=== PATIENT | male | born 1995 | race African-American/Black ===

== ENCOUNTER 2020-01-06 17:24 | Emergency (ER) | payer BC, SELFPAY ==
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
[2020-01-06 19:33] VITALS: BP 126/73; TEMP 98.2; O2SAT 100
== END 2020-01-06 19:28 | disposition home or self-care (01) ==
LOC: ER 17:24
DX: M79.10 Myalgia, unspecified site (principal); R07.9 Chest pain, unspecified; V89.2XXA Person injured in unspecified motor-vehicle accident, traffic, initial encounter
CPT/HCPCS: 71045; 99282

== ENCOUNTER 2024-04-22 16:00 | Emergency (ER) | payer OTHER, SELFPAY ==
--- OUTSIDE RECORDS SUMMARY | 2024-04-22 16:03 | XMS REPORT | Continuity of Care Document ---
Author Name Unknown Address [address] [facility] [address] [place] [address] [facility] Address [address] [facility] [address] [place] [address] Care Team Providers Care Custom Protection Officer Name Role Phone PCP, PATIENT DOES NOT HAVE A Primary Care Physic gina Unavailable AMBAR BLEDSOE Attending Clinician Unavailable Ambar Bledsoe NP Attending Clinician Problems Condition Name Condition Details Condition Category Status Onset Date Resolution Date Last Treatment Date Treating Clinician Comments Source Strain of lumbar region, initial encounter Strain of lumbar region, initial encounter Disease Active 2023-07 00:00: 00 [facility] Chronic left-sided low back pain without sciatica Chronic left-sided low back pain without sciatica Disease Active 2023-07 00:00: 00 [facility] Allergies, Adverse Reactions, Alerts Allergy Name Allergy Type Status Severity Reaction(s) Onset Date Inactive Date Treating Clinician Comments Source NO KNOWN ALLERGIE S Drug Class Active [facility] Social History Social Habit Start Date Stop Date Quantity Comments Source Sexual orientation U [facility] Sex assigned at 1995 00:00:00 1995 00:00:00 [facility] Smoking Status Start Date Stop Date Source Tobacco smoking consumption unknown [facility] Medications Ordered Medication Name Filled Medication Name Start Date Stop Date Current Medication? Ordering Clinician Indication Dosage Frequency Signature (SIG) Comments Components Source ibuprofen (IBU) tablet 600 mg 2023-07 0- 22:30: 00 04-21 10:29 :00 Yes 600mg 600 mg, Oral, ONCE, 1 dose, On 04/20/24 at 1730, ANNETTE [facility] ibuprofen (IBU) tablet 600 mg 2023-07 0 22:15: 00 04-20 22:15 :00 No 600mg 600 mg, Oral, ONCE, 1 dose, On 04/20/24 at 1715, ANNETTE [facility] ibuprofen 600 mg tablet 2023-07 00:00: 00 Yes [id number] 600mg Take 1 tablet by mouth every 6 (six) hours as needed for Pain (scale 4-6). [facility] Vital Signs Vital Name Observation Time Observation Value Comments S zurdoce Systolic blood pressure 2024-04-20 21:56:00 121 mm[Hg] [facility] Diastolic blood pressure 2024-04-20 21:56:00 75 mm[Hg] [facility] Heart rate 2024-04-20 21:56:00 78 /min [facility] Body temperature 2024-04-20 21:56:00 36.56 Jocelyn [facility] Respiratory rate 2024-04-20 21:56:00 20 /min [facility] Body height 2024-04-20 21:56:00 170.2 cm [facility] Body weight 2024-04-20 21:56:00 68.04 kg [facility] BMI 2024-04-20 21:56:00 23.49 kg/m2 [facility] Oxygen saturation in Arterial blood by Pulse oximetry 2024-04-20 21:56:00 99 /min [facility] Encounters Start Date/Time End Date/Time Encounter Type Admission Type Attending Clinicians Care Facility Care Department Encounter ID Source 2024-04-20 16:55:00 2024-04-20 17:28:00 Emergency X AMBAR BLEDSOE [facility] ERT [id number] [facility] 2024-04-20 16:55:00 2024-04-20 17:28:00 Emergency Ambar Bledsoe [facility] [id number] [facility] Notes Date/Time Note Provider Source 2024-04-20 17:26:12 Patient discharged to nursing home. Patient given printed and verbal discharge instructions regarding diagnosis. Instructed to follow up with PCP. Patient verbalized understanding of instructions. Patient awake, alert, oriented, respirations even and unlabored, skin warm and dry, color appropriate for race. No adverse reaction to meds given in ER noted upon discharge. Discussed medications. Advised to seek medical attention for new/prolonged/worsening of symptoms, patient ambulated from unit with steady gait in no apparent distress, in custody of [employer]. Rahul Prajapati RN [facility] 2024-04-20 16:55:09 Pt presents to ED via [facility] for c/o back pain that flare up when he was arrested and taken to nursing home. EMS gave 500 mg tylenol PO, 20 g to RAC. PMHx: anxiety [facility]
--- NOTE | 2024-04-22 17:19 | EDPHYS ---
Physician Documentation [facility] Name: Jorge Barlow Jr Age: 28 yrs Sex: Male : 1995 Arrival Date: 04/22/2024 Time: 16:00 Bed [id number] Private MD: ED Physician Michael Wright HPI: 04/22 16:02 This 28 yrs old Black Male presents to ER via EMS with complaints of abdominal pain, sb4 diarrhea. 16:02 The patient presents with abdominal pain that is diffuse. Onset: The symptoms/episode sb4 began/occurred today. The symptoms do not radiate. Associated signs and symptoms: Pertinent positives: nausea, vomiting, and diarrhea. The patient has not experienced similar symptoms in the past. The patient has not recently seen a physician. Historical: - Allergies: 16:13 No Known Allergies; ss - Home Meds: 16:13 None [Active]; ss - PMHx: 16:13 None; ss - PSHx: 16:13 None; ss - Immunization history:: Adult Immunizations up to date. - Infectious Disease History:: Denies. - Social history:: Smoking status: Patient denies any tobacco usage or history of. ROS: 16:02 Constitutional: Negative for fever, chills, and weight loss, sb4 16:02 Abdomen/GI: Positive for abdominal pain, nausea, vomiting, and diarrhea, 16:02 All other systems are negative, Exam: 16:02 Constitutional: This is a well developed, well nourished patient who is awake, alert, sb4 and in no acute distress. Head/Face: Normocephalic, atraumatic. Eyes: Extra-ocular motions intact. Periorbital areas with no swelling, redness, or edema. ENT: Mucous membranes moist. Cardiovascular: Regular rate and rhythm with a normal S1 and S2. Respiratory: Lungs have equal breath sounds bilaterally, clear to auscultation and percussion. No rales, rhonchi or wheezes noted. No increased work of breathing, no retractions or nasal flaring. Skin: Warm, dry with normal turgor. Normal color with no rashes, no lesions, and no evidence of cellulitis. 16:02 Abdomen/GI: Inspection: abdomen appears normal, Bowel sounds: normal, Palpation: soft, mild abdominal tenderness, in all quadrants, Vital Signs: 16:00 BP 122 / 88; Pulse 79; Resp 15; Temp 98(TE); Pulse Ox 100% on R/A; Weight 68.04 kg; ss Height 5 ft. 6 in. ; Pain 7/10; 16:00 Body Mass Index 24.21 (68.04 kg, 167.64 cm) ss 16:00 Pain Scale: Adult ss MDM: 16:00 Patient medically screened. sb4 17:18 Data reviewed: vital signs, nurses notes, EMS record, and as a result, I will discharge sb4 patient. Counseling: I had a detailed discussion with the patient and/or guardian regarding to return to the emergency department if symptoms worsen or persist or if there are any questions or concerns that arise at home. ED course: patient eloped after triage and my assessment, prior to labs and imaging obtained. Administered Medications: 17:19 Not Given (left prior to medical assistant): ns 0.9% 1000 ml IV at 1 bolus Per protocol; 1000 ss mL bolus 17:20 Not Given (left prior to medical assistant): TORadol - mg IVP once ss 17:20 Not Given (left prior to medical assistant): ondansetron 4 mg IVP once; over 2 minutes ss Disposition Summary: 04/22/24 17:19 Discharge Ordered Notes: Location: Home sb4 Condition: Undetermined sb4 Diagnosis - Abdominal pain, Generalized sb4 - Diarrhea, unspecified sb4 Followup: sb4 - With: Emergency Department - When: As needed - Reason: Worsening of condition Forms: - Medication Reconciliation Form sb4 - Antibiotic Education sb4 - Prescription Opioid Use sb4 - Patient Portal Instructions sb4 - Leadership Thank You Letter sb4 Signatures: Dispatcher [employer] Elizabeth Zhang RN RN Yasmin Alves PA-C PA-C sb4 Corrections: (The following items were deleted from the chart) 17:21 16:01 IV Saline Lock ordered. sb4 ss 17:21 16:01 Labs collected and sent ordered. sb4 ss
--- NOTE | 2024-04-22 17:19 | ER ---
Nurse's Notes [facility] Name: Jorge Barlow Jr Age: 28 yrs Sex: Male : 1995 Arrival Date: 04/22/2024 Time: 16:00 Bed IW10 Private MD: Diagnosis: Abdominal pain, Generalized;Diarrhea, unspecified Presentation: 04/22 16:00 Chief complaint: Patient states: abd pain and diarrhea that began at 1300 today after ss eating "residential food". Coronavirus screen: Client denies travel out of the [place] in the last 14 days. Ebola Screen: Patient denies exposure to infectious person. Patient denies travel to an Ebola-affected area in the 21 days before illness onset. Initial Sepsis Screen: Does the patient meet any 2 criteria? No. Patient's initial sepsis screen is negative. Does the patient have a suspected source of infection? No. Patient's initial sepsis screen is negative. Risk Assessment: Do you want to hurt yourself or someone else? Patient reports no desire to harm self or others. Onset of symptoms was April 22, 2024. 16:00 Method Of Arrival: EMS: [facility] 16:00 Acuity: COLT 3 ss Triage Assessment: 16:00 General: Appears in no apparent distress. comfortable, Behavior is calm, cooperative. ss Pain: Complains of pain in abdomen Pain currently is 7 out of 10 on a pain scale. Neuro: Level of Consciousness is awake, alert. Respiratory: Airway is patent Respiratory effort is even, unlabored, Respiratory pattern is regular, symmetrical. GI: Abdomen is flat, non-distended, Reports diarrhea. Derm: Skin is intact, is healthy with good turgor, Skin is pink, warm \\T\\ dry. normal. Musculoskeletal: Circulation, motion, and sensation intact. Range of motion: intact in all extremities. Historical: - Allergies: 16:13 No Known Allergies; ss - Home Meds: 16:13 None [Active]; ss - PMHx: 16:13 None; ss - PSHx: 16:13 None; ss - Immunization history:: Adult Immunizations up to date. - Infectious Disease History:: Denies. - Social history:: Smoking status: Patient denies any tobacco usage or history of. Assessment: 17:18 Reassessment: called to exam room. No answer. RUBEN Morales notified. ss Vital Signs: 16:00 BP 122 / 88; Pulse 79; Resp 15; Temp 98(TE); Pulse Ox 100% on R/A; Weight 68.04 kg; ss Height 5 ft. 6 in. ; Pain 7/10; 16:00 Body Mass Index 24.21 (68.04 kg, 167.64 cm) ss 16:00 Pain Scale: Adult ss ED Course: 16:00 Patient arrived in ED. sb4 16:00 Yasmin Bennett PA-C is PHCP. sb4 16:00 Michael Wright MD is Attending Physician. sb4 16:13 Triage completed. ss 16:13 Arm band placed on right wrist. ss 17:21 No provider procedures requiring assistance completed. Patient did not have IV access ss during this emergency room visit. Administered Medications: 17:19 Not Given (left prior to mushroom growth media mixer): ns 0.9% 1000 ml IV at 1 bolus Per protocol; 1000 ss mL bolus 17:20 Not Given (left prior to mushroom growth media mixer): TORadol - [id number] mg IVP once ss 17:20 Not Given (left prior to mushroom growth media mixer): ondansetron 4 mg IVP once; over 2 minutes ss Outcome: 17:19 Discharge ordered by . sb4 17:21 Discharged to home ambulatory, ss 17:21 Condition: good 17:21 Discharge instructions given to pt left prior to receiving discharge instructions 17:22 Patient left the ED. Signatures: Elizabeth Ca, RN RN Yasmin Benntet PA-C PA-C sb4
[2024-04-22 17:30] VITALS: BP 122/88; TEMP 98; O2SAT 100
== END 2024-04-22 17:22 | disposition home or self-care (01) ==
LOC: ER 16:00
DX: R10.84 Generalized abdominal pain (principal); R19.7 Diarrhea, unspecified
CPT/HCPCS: 99283